=== PATIENT | female | born 1985 | race Caucasian/White ===

== ENCOUNTER 2017-06-09 12:45 | Emergency (ER) | payer OTHER, MEDICAID ==
[~2017-06-09] VITALS: Ht 177.8 cm; Wt 95.7 kg
[2017-06-09 14:59] VITALS: BP 119/61
== END 2017-06-09 14:59 | disposition home or self-care (01) ==
LOC: ED 12:45
DX: K59.00 Constipation, unspecified (principal)

== ENCOUNTER 2017-09-30 21:28 | Emergency (ER) | payer OTHER ==
[2017-10-01 00:25] LABS: UA SPECIFIC GRAVITY 1.015 (1.005-1.035); microscopic required? YES; urine erythrocyte NEGATIVE (NEGATIVE)
[2017-10-01 00:55] LABS: BASOPHIL % 0.5 % (0-2); PLATELET COUNT 312 x10^3mcL (130-400)
[2017-10-01 00:59] LABS: RED CELL DISTRIBUTION WIDTH 17.2 % (11.5-14.5)
[2017-10-01 01:11] LABS: CALCIUM 8.8 mg/dL (8.5-10.1); CARBON DIOXIDE 30.8 mmol/L (21-32); CHLORIDE SERUM 103 mmol/L (98-107); CREATININE SERUM 0.7 mg/dL (0.6-1.0); GFR1 > 60 mL/min; GLUCOSE SERUM 100 mg/dL (74-106); POTASSIUM SERUM 3.9 mmol/L (3.5-5.1); SODIUM SERUM 139 mmol/L (136-145)
[2017-10-01 01:16] LABS: ALBUMIN 3.6 g/dL (3.4-5.0); ALKALINE PHOSPHATASE 71 U/L (46-116); ALT/SGPT 64 U/L (14-59); AST/SGOT 30 U/L (15-37); BILIRUBIN TOTAL 0.26 mg/dL (0.20-1.00); TOTAL PROTEIN, SERUM 7.6 g/dL (6.4-8.2)
[2017-10-01 03:23] VITALS: BP 126/94
== END 2017-10-01 03:23 | disposition home or self-care (01) ==
LOC: ED 21:28
PROVIDERS: Emergency Medicine
DX: N39.0 Urinary tract infection, site not specified (principal); N76.0 Acute vaginitis; B37.3 Candidiasis of vulva and vagina
CPT/HCPCS: 36415; 87491; 87591; J2270; Q0092

== ENCOUNTER 2019-12-23 15:19 | Emergency (ER) | payer OTHER ==
[~2019-12-23] VITALS: Ht 170.2 cm; Wt 93.9 kg
[2019-12-23 15:38] VITALS: Ht 170.2 cm; Wt 93.9 kg
[2019-12-23 17:43] VITALS: BP 130/71
== END 2019-12-23 17:43 | disposition home or self-care (01) ==
LOC: ED 15:19
DX: J11.1 Influenza due to unidentified influenza virus with other respiratory manifestations (principal)
CPT/HCPCS: 87804